=== PATIENT | female | born 1955 | race Caucasian/White ===

== ENCOUNTER 2018-11-12 06:13 | Day surgery (SDC) | payer BC, MEDICARE ==
[~2018-11-12 06:13] MED LIST: CEFAZOLIN 2 Gram 2 GM/50 ML BAG IVPB ONE
[2018-11-12] MEDS ORDERED: LIDOCAINE 2% MDV (20MG/ML) 20ML VIAL IV ONE (06:14)
[2018-11-12] MEDS ORDERED: PROPOFOL 10 MG/ML VIAL IV ONE (06:14)
[2018-11-12] MEDS ORDERED: FENTANYL PF 100MCG/2ML VIAL IV ONE (06:14)
[2018-11-12] MEDS ORDERED: DESFLURANE 240 ML BTL INH ONE (06:14)
[2018-11-12] MEDS ORDERED: MIDAZOLAM HCL 2MG/2ML VIAL IV ONE (06:14)
[2018-11-12] MEDS ORDERED: ONDANSETRON HCL IV 4 MG/2 ML VIAL IVP ONE (06:14)
--- NOTE | 2018-11-17 10:50 | Operative Note ---
DATE OF SURGERY: 11/12/2018 PREOPERATIVE DIAGNOSIS: Gross hematuria. POSTOPERATIVE DIAGNOSIS: Gross hematuria. OPERATION: Cystoscopy. PROCEDURE: General anesthesia. Lithotomy position. The patient was prepped and draped in sterile fashion. Using a resectoscope which was placed into the bladder, iraheta endoscopy was performed. There was no evidence of any foreign body, bladder stone/calculi, or infection. The patient was noted to have a grade 2 cystocele. [facility]
== END 2018-11-12 09:35 | disposition home or self-care (01) ==
LOC: SUR 06:13
PROVIDERS: ATTEND Specialist
DX: R31.0 Gross hematuria (principal); I10 Essential (primary) hypertension; J45.909 Unspecified asthma, uncomplicated
CPT/HCPCS: J2405